=== PATIENT | female | born 1945 | race Caucasian/White ===

== ENCOUNTER → 2019-10-31 09:47 | Outpatient (BNVA) | payer MEDICARE, OTHER, SELFPAY | PROVIDERS: Family Provider Family Medicine; PCP Family Medicine; Visit Provider Nurse Practitioner | DX: F41.1 Generalized anxiety disorder (principal); F33.1 Major depressive disorder, recurrent, moderate | CPT/HCPCS: 99214 ==

== ENCOUNTER → 2019-12-26 07:30 | Outpatient (BNVA) | payer MEDICARE, OTHER, SELFPAY | PROVIDERS: Family Provider Family Medicine; PCP Family Medicine; Visit Provider Nurse Practitioner | DX: F33.1 Major depressive disorder, recurrent, moderate (principal); F41.1 Generalized anxiety disorder; F43.12 Post-traumatic stress disorder, chronic; F60.3 Borderline personality disorder | CPT/HCPCS: 99213 ==

== ENCOUNTER → 2020-02-27 07:38 | Outpatient (BNVA) | payer MEDICARE, OTHER, SELFPAY | PROVIDERS: Family Provider Family Medicine; PCP Family Medicine; Visit Provider Nurse Practitioner | DX: F33.1 Major depressive disorder, recurrent, moderate (principal); F41.1 Generalized anxiety disorder | CPT/HCPCS: 99213 ==

== ENCOUNTER 2020-03-26 15:30 | Inpatient (IN) | payer MEDICARE, OTHER, SELFPAY ==
[2020-03-26 15:32] VITALS: BMI 23.6
--- NOTE | 2020-03-26 15:41 | ECG_ITS ---
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 Measurements Intervals [place] Rate: 83 P: 49 IN: 176 QRS: 53 QRSD: 85 T: 65 QT: 376 QTc: 444 Interpretive Statements SINUS RHYTHM NONSPECIFIC T-WAVE ABNORMALITY Compared to ECG 09/08/2017 07:24:26 No significant changes Electronically Signed On 03-26-2020 16:46:28 CDT by Kenya Hernández M.D. [id number] f
--- NOTE | 2020-03-26 15:41 | XR_ITS ---
WS: [id number] Left hip, AP and frog leg, AP pelvis, 03/26/2020 Clinical Data: fall, hip pain Comparison: None. Findings: There is a comminuted fracture of the left pubic symphysis. Both hips appear to be intact. The remain akash of the pelvis is unremarkable. The SI joints and pubic symphysis show no abnormalities. XR/XR hip LT 2-3V wo/w pel* [id number] Impression: Comminuted fracture left pubic symphysis.
--- NOTE | 2020-03-26 15:42 | XR_ITS ---
WS: [id number] Portable AP supine chest, 03/26/2020 Clinical Data: fall Comparison: Portable chest, 10/29/2017. Findings: No nodules, masses or effusions are seen. The heart is normal. The pulmonary vascularity is not increased. No pneumonia or pneumothorax is seen. The aortic arch shows calcification. There are clips in the right upper quadrant from a cholecystectomy. XR/XR chest 1V portable [id number] Impression: Atherosclerosis.
[2020-03-26 15:43] VITALS: BP 152/71; PULSE 83; RESP 16; TEMP 36.6; O2SAT 91
[2020-03-26 16:15] LABS: Basophils # 0.1 10^3/uL (0.0-0.1); Basophils % 0.3 %; Eosinophils # 0.1 10^3/uL (0.0-0.8); Eosinophils % 0.4 %; Hematocrit 35.7 % (37.0-47.0); Hemoglobin 11.2 g/dL (11.5-15.3); Lymphocytes # 1.5 10^3/uL (0.8-4.8); Lymphocytes % 8.9 %; Mean Corpuscular HGB Conc 31.4 g/dL (30.0-36.0); Mean Corpuscular Hemoglobin 30.1 pg (28.0-34.0); Mean Platelet Volume 9.1 fL (7.4-10.4); Monocytes # 0.9 10^3/uL (0.2-0.9); Neutrophils # 14.44 10^3/uL (1.8-7.7); Neutrophils % 84.6 %; Nucleated Red Blood Cells % 0 %; Platelet Count 372 10^3/cmm (130-400); Red Blood Count 3.72 10^6/uL (4.1-5.3); Red Cell Distribution Width 13.3 % (12.1-15.1); White Blood Count 17.1 10^3/uL (4.0-10.0)
[2020-03-26 16:18] LABS: INR 0.92 (0.8-1.2)
[2020-03-26 16:26] LABS: Alanine Aminotransferase 137 U/L (0-33); Albumin Level 3.8 g/dL (3.5-5.2); Alkaline Phosphatase 116 IU/L (35-105); Anion Gap 11.5 (5-19); Aspartate Amino Transferase 298 U/L (0-32); Blood Urea Nitrogen 24 mg/dL (8-23); Calcium 9.1 mg/dL (8.5-10.5); Carbon Dioxide 28 mmol/L (22-29); Chloride 103 mmol/L (98-107); Globulin 3.4 g/dL (1.3-4.6); Glucose 127 mg/dL (65-115); Osmolality Calculated 284 mOsm/kg (285-295); Potassium 4.5 mmol/L (3.5-5.1); Sodium 138 mmol/L (136-145); Total Bilirubin 0.4 mg/dL (0.15-1.2); Total Protein 7.2 g/dL (6.6-8.7)
[2020-03-26 16:52] LABS: Add Urine Microscopic? YES; Bilirubin Urine Neg (NEGATIVE); Blood Urine Neg (Negative); Glucose Urine UA Norm (Normal); Ketones Urine Negative (Negative); Leukocyte Esterase Urine 1+ (Negative); Nitrate Urine Positive (Negative); Protein Urine Neg (Negative); Sulfosalicylic Acid Urine Negative (Negative); Urine Appearance Hazy (CLEAR); Urine Color Yellow (Yellow); Urobilinogen Urine Norm (Negative); pH Urine 8 (5-7)
[2020-03-26 16:54] LABS: Add Urine Culture? Yes; Amorphous Sediment Urine 3+; Bacteria Urine 2+; RBC Urine 0-4 /hpf (0-2); Squamous Epithelial Cell Urine 0-4 (0-5); WBC Urine 80-100 /hpf (0-5)
--- NOTE | 2020-03-26 17:21 | ED_ITS ---
HPI - Fall General: Chief Complaint: Fall Stated Complaint: HIP PAIN Time Seen by Provider: 03/26/20 15:41 History of Present Illness: HPI Narrative: This patient is a very nice 74-year-old female who fell today while out in her garden. She was trying to step over a fence and tripped. She fell hard onto her left side. She was unable to stand and her called the ambulance. On their arrival she did not have a significant bout of pain moving the leg but was again unable to stand and agreed to be transported. On arrival she is awake and alert. She denies any loss of consciousness or hitting her head. She denies any injury anywhere else. She is overall fairly healthy. She said she had had problems with [place] spotted fever in the past few years. She also has some chronic stomach problems which currently are being treated successfully with Pristiq. She also takes levothyroxine. complaint: fall Onset (ago): hour(s) (-09/13) Fall from: standing Fall witnessed: yes, by family Place fall occurred: home Loss of consciousness: None Prolonged down time: no Symptoms prior to fall: none Context: tripped/slipped Associated symptoms-after fall: Denies abdominal pain, chest pain, headache(s) or neck pain Review of Systems General: Reports: 10 or more systems reviewed and unremarkable except in HPI and below Const: Denies: fever(s), chills, fatigue or malaise Eyes: Denies: change in vision ENMT: Denies: odynophagia Card: Denies: chest pain or swelling of feet/ankles Resp: Denies: dyspnea, productive cough or non-productive cough GI: Denies: abdominal pain, nausea or vomiting : Denies: flank pain or difficulty voiding Musc: Denies: neck pain or back pain Skin/Breast: Denies: rash Neuro: Denies: headache(s), numbness in extremities or weakness in extremities Krzysztof/Lymph: Denies: easy bruising or easy bleeding [facility] ED PFSH: Medical History Generalized anxiety disorder Major depressive disorder, recurrent, moderate Social History Smoking and tobacco status: former smoker Quit status (tobacco): has quit using tobacco Year quit tobacco: 1984 Second hand smoke exposure: No Physical Exam Const: COMMON NORMALS: no acute distress, patient oriented x3, no limitations and alert GENERAL APPEARANCE: cooperative and comfortable HENMT: HEAD & SCALP: normal to inspection FACE & SINUS: normal facial exam Eye: GENERAL EYE: appearance normal, both eyes and all related structures Neck/C-Spine: COMMON NORMALS: supple, no meningeal signs and no JVD Chest: COMMONS NORMALS: normal inspection of the chest Resp: COMMON NORMALS: normal respiratory effort, No use of accessory muscles and clear to auscultation bilaterally AUSCULTATION: clear to auscultation bilaterally Cardio: COMMON NORMALS: no JVD, regular rate, regular rhythm and No murmurs present (Cardio) RATE: regular rate RHYTHM: regular rhythm GI: COMMON NORMALS: Normal to inspection, nondistended, normoactive bowel sounds present, Soft to palpation and non-tender INSPECTION: Yes normal to inspection AUSCULTATION: Yes normoactive bowel sounds PALPATION: Yes Soft to palpation Back/Pelvis: COMMON NORMALS: thoracic and lumbar spine normal to inspection PELVIS: Yes Other pelvic findings (Pain in the left groin and pain with range of motion of the leg. Movement causes her to have muscle spasm in the gracilis muscle area.) COCCYX: Other pelvic findings (Pain in the left groin and pain with range of motion of the leg. Movement causes her to have muscle spasm in the gracilis muscle area.) Extremity: COMMON NORMALS: normal to inspection Neuro: COMMON NORMALS: patient oriented x3, moves all extremities, no focal motor deficits and no sensory deficits noted SENSORIUM/ORIENTATION: Yes alert MENINGEAL SIGNS: Yes no meningeal signs Psych: COMMON NORMALS: mental status grossly normal, cooperative and normal affect Skin: COMMON NORMALS: no rashes or lesions noted and turgor normal GENERAL SKIN EXAM: no rashes or lesions noted and turgor normal Course ED course: X-rays show a comminuted sacral fracture. She is agreeable to staying in the hospital for some pain control and physical therapy evaluation. She also was noted to have a UTI on her urine specimen. Place a Larry and continue pain meds as needed. Consult orthopedics and admission to the hospitalist. Vital Signs: Vital signs: Vital Signs Temperature 97.8 F 03/26/20 15:43 Pulse Rate 82 03/26/20 17:30 Respiratory Rate 18 03/26/20 18:10 Blood Pressure 133/66 03/26/20 17:30 Pulse Oximetry 98 03/26/20 18:10 MDM - Fall MDM Narrative: Medical decision making narrative: Fall due to tripping over a fence. Hip fracture versus pelvic fracture. She otherwise denies complaints. Even if x-rays are negative she is unable to ambulate and will probably require admission for physical therapy to assess and treat for her ability to go home versus a [place] [facility]. She seems very motivated and may be able to do well with some pain control and teaching. Lab Data: Labs: Lab Results 03/26/20 03/26/20 03/26/20 Range/Units 15:58 15:58 15:58 WBC 17.1 H (4.0-10.0) 10^3/ uL RBC 3.72 L (4.1-5.3) 10^6/u L Hgb 11.2 L (11.5-15.3) g/dL Hct 35.7 L (37.0-47.0) % MCV 96.0 (81-99) fL MCH 30.1 (28.0-34.0) pg MCHC 31.4 (30.0-36.0) g/dL RDW 13.3 (12.1-15.1) % Plt Count 372 (130-400) 10^3/c mm MPV 9.1 (7.4-10.4) fL Neut % (Auto) 84.6 % Lymph % (Auto) 8.9 % [place] % (Auto) 5.0 % Eos % (Auto) 0.4 % Baso % (Auto) 0.3 % Neut # (Auto) 14.44 H (1.8-7.7) 10^3/u L Lymph # (Auto) 1.5 (0.8-4.8) 10^3/u L [place] # (Auto) 0.9 (0.2-0.9) 10^3/u L Eos # (Auto) 0.1 (0.0-0.8) 10^3/u L Baso # (Auto) 0.1 (0.0-0.1) 10^3/u L Nucleated RBC % (a uto) 0 % Nucleated RBCs # 0.0 /100WBC PT 12.60 (10.5-13.3) SECO NDS INR 0.92 (0.8-1.2) Sodium 138 (136-145) mmol/L Potassium 4.5 (3.5-5.1) mmol/L Chloride 103 (98-107) mmol/L Carbon Dioxide 28 (22-29) mmol/L Anion Gap 11.5 (5-19) BUN 24 H (8-23) mg/dL Creatinine 1.0 H (0.5-0.9) mg/dL Glucose 127 H (65-115) mg/dL Calculated Osmolal ity 284 L (285-295) mOsm/k g Calcium 9.1 (8.5-10.5) mg/dL Total Bilirubin 0.4 (0.15-1.2) mg/dL AST 298 H (0-32) U/L ALT 137 H (0-33) U/L Alkaline Phosphata se 116 H (35-105) IU/L Total Protein 7.2 (6.6-8.7) g/dL Albumin 3.8 (3.5-5.2) g/dL Globulin 3.4 (1.3-4.6) g/dL Urine Color (Yellow) Urine Appearance (CLEAR) Urine pH (5-7) Ur Specific Gravit y (1.005-1.030) Urine Protein (Negative) Urine Glucose (UA) (Normal) Urine Ketones (Negative) Urine Blood (Negative) Urine Nitrate (Negative) Urine Bilirubin (NEGATIVE) Prot Sulfosalicyli c Acd (Negative) Urine Urobilinogen (Negative) mg/dL Ur Leukocyte Crista ase (Negative) Urine RBC (0-2) /hpf Urine WBC (0-5) /hpf Ur Squamous Epith Cells (0-5) Amorphous Sediment Urine Bacteria (NONE) Blood Type Rho(D) Type Antibody Screen 03/26/20 03/26/20 Range/Units 15:58 16:20 WBC (4.0-10.0) 10^3/ uL RBC (4.1-5.3) 10^6/u L Hgb (11.5-15.3) g/dL Hct (37.0-47.0) % MCV (81-99) fL MCH (28.0-34.0) pg MCHC (30.0-36.0) g/dL RDW (12.1-15.1) % Plt Count (130-400) 10^3/c mm MPV (7.4-10.4) fL Neut % (Auto) % Lymph % (Auto) % [place] % (Auto) % Eos % (Auto) % Baso % (Auto) % Neut # (Auto) (1.8-7.7) 10^3/u L Lymph # (Auto) (0.8-4.8) 10^3/u L [place] # (Auto) (0.2-0.9) 10^3/u L Eos # (Auto) (0.0-0.8) 10^3/u L Baso # (Auto) (0.0-0.1) 10^3/u L Nucleated RBC % (a uto) % Nucleated RBCs # /100WBC PT (10.5-13.3) SECO NDS INR (0.8-1.2) Sodium (136-145) mmol/L Potassium (3.5-5.1) mmol/L Chloride (98-107) mmol/L Carbon Dioxide (22-29) mmol/L Anion Gap (5-19) BUN (8-23) mg/dL Creatinine (0.5-0.9) mg/dL Glucose (65-115) mg/dL Calculated Osmolal ity (285-295) mOsm/k g Calcium (8.5-10.5) mg/dL Total Bilirubin (0.15-1.2) mg/dL AST (0-32) U/L ALT (0-33) U/L Alkaline Phosphata se (35-105) IU/L Total Protein (6.6-8.7) g/dL Albumin (3.5-5.2) g/dL Globulin (1.3-4.6) g/dL Urine Color Yellow (Yellow) Urine Appearance Hazy A (CLEAR) Urine pH 8 H (5-7) Ur Specific Gravit y 1.010 (1.005-1.030) Urine Protein Neg (Negative) Urine Glucose (UA) Norm (Normal) Urine Ketones Negative (Negative) Urine Blood Neg (Negative) Urine Nitrate Positive H (Negative) Urine Bilirubin Neg (NEGATIVE) Prot Sulfosalicyli c Acd Negative (Negative) Urine Urobilinogen Norm (Negative) mg/dL Ur Leukocyte Crista ase 1+ H (Negative) Urine RBC 0-4 H (0-2) /hpf Urine WBC 80-100 H (0-5) /hpf Ur Squamous Epith Cells 0-4 H (0-5) Amorphous Sediment 3+ Urine Bacteria 2+ H (NONE) Blood Type A Positive Rho(D) Type Positive Antibody Screen Negative Discharge Plan Discharge Patient Disposition: Placed in Observation Admit Provider: Ilana Todd Clinical Impression: Acute UTI Closed pelvic fracture Qualifiers: Encounter type: initial encounter Pelvic bone location: pubis Sublocation of pubis: unspecified portion of pubis Laterality: left Qualified Code(s): S32.502A - Unspecified fracture of left pubis, initial encounter for closed fracture Condition: Stable Referrals: Joaquim Zambrano [Primary Care Provider] - Coding Level of Care Code ED Community [facility] Program Coordinator for g Fwd Exam Comprehensive
[2020-03-26 17:30] VITALS: BP 133/66; PULSE 82; RESP 18; O2SAT 93
[2020-03-26 18:10] VITALS: RESP 18; O2SAT 98
[2020-03-26] MEDS: morphine 4 mg/mL SDV 1 mL IVP (18:10)
[2020-03-26] MEDS: ondansetron 2 mg/ML SDV 2 mL 4 MG IVP (18:12)
[2020-03-26 19:40] VITALS: BP 163/64; PULSE 79; RESP 16; O2SAT 98
[2020-03-26 20:25] VITALS: BP 156/76; PULSE 77; RESP 14; TEMP 37.1; O2SAT 95
[2020-03-26] MEDS: HYDROcodone-acetaminophen 5-325 mg Tablet 1 TAB PO (21:07)
[2020-03-26] MEDS: enoxaparin 40 mg/0.4 mL Syringe SUBCUT (21:07)
[2020-03-26] MEDS: cefTRIAXone 1,000 MG in sodium chloride 0.9% (plus) 50 ML 100 MG IV (21:08)
[2020-03-26] MEDS: sodium chloride 0.9% 1,000 ML 75 ML IV (21:08)
--- NOTE | 2020-03-26 21:13 | P.HP_ITS ---
Providers/Chief Complaint Admitting Physician: Ilana Todd MD Primary Care Provider: Joaquim Zambrano Chief Complaint: HIP PAIN History of Present Illness Bailey Matta is a 74 year old female with past medical history of hypertension, hypothyroidism, depression who presented to the ER today after she tripped over her fence and developed pain in her right leg. She denies any n ausea, vomiting, headache, dizziness, palpitation, diarrhea, complains of constipation, denies flulike symptoms, exposure to COVID-19 patients, dysuria. Patient's blood work in the ER showed a white count of 17,000, hemoglobin of 11.2, left shift, INR of 0.9, sodium of 138, BUN of 24, creatinine of 1, AST of 298, ALT of 137, alkaline phosphatase of 116, urinalysis positive for nitrite 1+ leuk esterase and 80-100 WBCs. X-ray hip shows comminuted fracture left pubic symphysis. Hospitalist service was consulted for admission for pain control. Review of Systems General: Reports: 10 or more systems reviewed and unremarkable except in HPI and below Const: Denies: fever(s), chills or body aches Eyes: Denies: change in vision, blurry vision or photophobia ENMT: Reports: hoarseness; Denies: throat pain, enlarged tonsils, odynophagia or nasal congestion Card: Denies: chest pain, palpitations, irregular heart rhythm, edema, swelling of feet/ankles, lightheadedness, pre-syncope, dyspnea on exertion or orthopnea Resp: Denies: dyspnea, productive cough, non-productive cough, wheezing, strid or, pain on inspiration, change in phlegm color, hemoptysis or chest congestion GI: Denies: abdominal pain, nausea, vomiting, hematemesis, coffee ground emesis, dysphagia, heartburn, diarrhea, constipation, GI cramping, change in stool character, hematochezia or melena : Denies: flank pain, difficulty voiding, dysuria, urinary frequency, urinary urgency, urinary hesitancy or hematuria Musc: Denies: neck pain, back pain, extremity pain, joint swelling, joint warmth or deformity Neuro: Denies: headache(s), numbness in extremities, weakness in extremities, sensory changes, difficulty walking, frequent falls, dizziness, vertigo, behavioral changes, Slurred speech present or seizure-like activity Psych: Denies: anxiety, depression, suicidal ideation or homicidal ideation Endo: Denies: polyuria, polydipsia, tired all the time, cold intolerance or hot flashes Krzysztof/Lymph: Denies: easy bruising or easy bleeding Medications/Allergies Home Medications Medication Instructions Recorded Confirmed Last Taken Type levothyroxine 75 mcg capsule 75 mcg PO QDAY 10/09/19 03/26/20 03/26/20 History amlodipine 2.5 mg tablet 5 mg PO DAILY tab 10/31/19 03/26/20 03/26/20 History polyethylene glycol 3350 17 17 gm PO DAILY 10/31/19 03/26/20 03/24/20 History gram/dose oral powder desvenlafaxine succinate 100 mg 100 mg PO DAILY #30 tab 02/27/20 03/26/20 03/25/20 Rx tablet,extended release 24 hr lorazepam 0.5 mg PO BEDTIME PRN 03/26/20 03/26/20 03/25/20 History magnesium 450 mg PO DAILY 03/26/20 03/26/20 03/26/20 History Allergies Allergy/AdvReac Type Severity Reaction Status Date / Time Aminoglycosides Allergy unknown Verified 03/26/20 17:29 bacitracin Allergy unknown Verified 03/26/20 17:29 caffeine Allergy unknown Verified 03/26/20 17:29 dexamethasone Allergy unknown Verified 03/26/20 17:29 erythromycin base Allergy unknown Verified 03/26/20 17:29 hydrocortisone Allergy unknown Verified 03/26/20 17:29 mirtazapine [From Remeron] Allergy unknown Verified 03/26/20 17:29 monosodium glutamate Allergy Unknown Verified 03/26/20 17:29 neomycin Allergy unknown Verified 03/26/20 17:29 [From Maxitrol (neomycin sulf)] polymyxin B Allergy unknown Verified 03/26/20 17:29 [From Maxitrol (neomycin sulf)] adhesives Allergy unknown Uncoded 03/26/20 15:45 PFSH Acute PFSH: Medical History (Updated 03/26/20 @ 21:20 by Ilana Todd MD) CVA (cerebral vascular accident) Generalized anxiety disorder History of breast cancer HTN (hypertension) Hypothyroid Major depressive disorder, recurrent, moderate Surgical History (Updated 03/26/20 @ 21:20 by Ilana Todd MD) History of appendectomy History of cataract surgery History of section History of cholecystectomy History of hysterectomy History of mastectomy Social History Smoking and tobacco status: former smoker Quit status (tobacco): has quit using tobacco Year quit tobacco: 1984 Second hand smoke exposure: No Vitals/I&O/Wt Last Vital Signs Temp 98.7 F 03/26/20 20:25 Pulse 77 03/26/20 20:25 Resp 14 03/26/20 20:25 BP 156/76 03/26/20 20:25 Pulse Ox 95 03/26/20 20:25 Weight last 48 hrs Weight 58.513 kg Physical Exam Narrative: EXAM NARRATIVE: GEN: Awake, alert and oriented, anxious, acute distress because of pain, mildly pale CVS: S1S@ N RS: CTA B/L except crackles over RUL Abd: Soft, nt/nd , bs+ [employer] RESOURCE TEACHER: no focal neuro deficits Urinary Catheter Management^: Larry: Cath Placed During This Visit: yes Reason for Continuing Indwelling Catheter: Required Immobilization for Trauma or Surgery or Anesthesia Urinary Catheter Date of Insertion: 03/26/20 Urinary Catheter Time of Insertion: 17:52 Data : 03/26/20 15:58 03/26/20 15:58 A&P Assessment and plan (1) Closed pelvic fracture: Status: Acute Qualifiers: Encounter type: initial encounter Laterality: left Pelvic bone location: pubis Sublocation of pubis: unspecified portion of pubis Qualified Code(s): S32.502A - Unspecified fracture of left pubis, initial encounter for closed fracture (2) Acute UTI: Status: Acute (3) Transaminitis: Status: Acute (4) Hypothyroid: Status: Acute (5) HTN (hypertension): Status: Acute (6) Major depressive disorder, recurrent, moderate: Status: Acute (7) Generalized anxiety disorder: Status: Acute Additional A&P Information Closed pelvic fracture: Case discussed with Dr. Westfall. No surgical indication at present. Pain control, physical therapy evaluation and treat. Discussed with patient for potential discharge to SNF for further rehabilitation and pain control. She states she is not opposed to the idea but her is and would discuss with him before making any further decisions. UTI: No significant symptom of dysuria but patient's white count is elevated and UA is concerning. Follow urine culture, blood culture. Given ceftriaxone in the ER. We will continue for the same. De-escalate as per the culture results. Normal saline 50 cc/h. Transaminase: Continue to monitor liver function tests. No stigmata of liver failure at present. Check uppercase panel, HIV, liver ultrasound. Continue chronic medications like levothyroxine home amlodipine, Lorazepam as needed. Check lipid panel, HbA1c, iron panel, TSH. Full code. Cardiac diet Heparin for DVT prophylaxis. Attestations Medical Necessity Statement*: >2MN for hip fracture Time Spent in Patient Care: Greater than 35 minutes (>than 50% of time spent in counselling and/or direct pt care on unit) . Coding Level of Care Code Acute Radio Repairman for Kailey Lai Diagnoses Closed pelvic fracture S32.502A Encounter type: initial encounter Laterality: left Pelvic bone location: pubis Sublocation of pubis: unspecified portion of pubis Acute UTI N39.0 Transaminitis R74.0 Hypothyroid E03.9 HTN (hypertension) I10 Major depressive disorder, recurrent, moderate F33.1 Generalized anxiety disorder F41.1
[2020-03-26] MEDS: desvenlafaxine 50 mg Tablet 100 MG PO (21:53)
[2020-03-26 22:16] LABS: Estmated Average Glucose 105; Hemoglobin A1C 5.3 % (4.0-6.0)
[2020-03-26 22:39] LABS: Iron 46 ug/dL (37-145); Percent Saturation 15.5 % (20-50); Thyroid Stimulating Hormone 2.69 uIU/mL (0.27-4.20); Total Iron Binding Capacity 295 mcg/dl; Unsaturated Iron Binding 249 ug/dL (112-347)
[2020-03-27] VITALS (8 sets, daily range): BP systolic 112–146; BP diastolic 58–72; PULSE 63–80; RESP 16–20; TEMP 36.6–37; O2SAT 92–96
[2020-03-27] MEDS: LORazepam 0.5 mg Tablet PO (00:02)
[2020-03-27 05:01] LABS: Basophils % 0.5 %; Eosinophils # 0.1 10^3/uL (0.0-0.8); Eosinophils % 2.2 %; Hematocrit 35.6 % (37.0-47.0); Hemoglobin 11.1 g/dL (11.5-15.3); Lymphocytes # 1.1 10^3/uL (0.8-4.8); Lymphocytes % 18.8 %; Mean Corpuscular HGB Conc 31.2 g/dL (30.0-36.0); Mean Corpuscular Hemoglobin 30.2 pg (28.0-34.0); Mean Platelet Volume 9.2 fL (7.4-10.4); Monocytes # 0.5 10^3/uL (0.2-0.9); Monocytes % 8.3 %; Neutrophils # 4.19 10^3/uL (1.8-7.7); Neutrophils % 69.9 %; Nucleated Red Blood Cells % 0 %; Platelet Count 276 10^3/cmm (130-400); Red Blood Count 3.67 10^6/uL (4.1-5.3); Red Cell Distribution Width 13.5 % (12.1-15.1)
[2020-03-27 05:23] LABS: Chol HDL Ratio 2.35 mg/dL (0.0-4.40); Cholesterol 169 mg/dL (0-200); HDL Cholesterol 72 mg/dL (60-100); LDL Cholesterol Calculated 87 mg/dL (50-129); LDL HDL Ratio 1.21 RATIO (0.00-3.22); Triglycerides 48 mg/dL (0-150)
[2020-03-27 05:25] LABS: Albumin Level 3.3 g/dL (3.5-5.2); Alkaline Phosphatase 203 IU/L (35-105); Blood Urea Nitrogen 19 mg/dL (8-23); Calcium 8.6 mg/dL (8.5-10.5); Carbon Dioxide 26 mmol/L (22-29); Chloride 105 mmol/L (98-107); Globulin 3.4 g/dL (1.3-4.6); Glucose 86 mg/dL (65-115); Osmolality Calculated 282 mOsm/kg (285-295); Sodium 138 mmol/L (136-145); Total Bilirubin 0.5 mg/dL (0.15-1.2); Total Protein 6.7 g/dL (6.6-8.7)
[2020-03-27 05:40] LABS: Alanine Aminotransferase 1231 U/L (0-33)
[2020-03-27 05:43] LABS: Aspartate Amino Transferase 1669 U/L (0-32)
[2020-03-27] MEDS: HYDROcodone-acetaminophen 5-325 mg Tablet 1 TAB PO ×3 (05:55→16:59)
[2020-03-27] MEDS: amlodipine 5 mg Tablet PO (08:19)
[2020-03-27] MEDS: levothyroxine 50 mcg Tablet 75 MCG PO (08:19)
--- NOTE | 2020-03-27 11:29 | PC.CHAP ---
Pastoral Care Encounter/Spiritual Assessment Type of Contact [] Declined coding auditor visit [] Patient/Family/Request visit [] Outpatient visit [] Follow-up visit [] Physician referral [] Code/Alert [x] Routine visit [] Staff referral [] Actively dying [] Patient sleeping [] Family support [] [] Out of room [] Palliative care [] [] Receiving care in room [] Pre-surgical visit [] Trauma [] Long length of stay [] ICU visit [] Other: Relational/Emotional Strength [x] Patient feels connected with others/family/visitors/staff [] Distress [] Loneliness/isolation [] Abandonment Spirituality of Patient [x] Person of Marika [x] Attends Denominational of their Marika [x] Believes in Prayer [x] Reads Bible or Samaritan materials [] There are Spiritual issues to be addressed Artificial Limb Fitter Interventions [x] Prayer [x] Active listening [x] Non-anxious presence [x] Spiritual/emotional support [] Crisis/trauma care [] Spiritual counseling [] Bereavement support [] Provided bereavement packet [] Provided Bible/devotional materials [] Provided toy/stuffed animal, coloring book to patient or family member [] Provided Communion [] Anointing/Homer [] Salvation [x] Completed spiritual assessment [] Other: Impact on Illness or Injury [] Angry [] Fearful [] Anxious [] Often cries [] Exhaustion [] Unable to work [] Unable to attend voodoo [] Unable to walk/stand [] Unable to read [] Unable to drive [] Unable to eat/drink [] Unable to sleep [] Unable to be with family [] Patient intubated [x] Other: n/a Summary Time spent with patient 10 minutes
--- NOTE | 2020-03-27 14:44 | CTR_ITS ---
PROCEDURE INFORMATION: Exam: CT Left Lower Extremity Without Contrast, Hip Exam date and time: 03/27/2020 4:56 PM Age: 74 years old Clinical indication: Injury or trauma; Fall; Initial encounter; Blunt trauma; Hip; Left; Additional info: Query greater trochanteric fracture TECHNIQUE: Imaging protocol: CT of the Left lower extremity without contrast was performed. Exam focused on the hip. Radiation optimization: All CT scans at this facility use at least one of these dose optimization techniques: automated exposure control; mA and/or kV adjustment per patient size (includes targeted exams where dose is matched to clinical indication); or iterative reconstruction. COMPARISON: CR XR hip LT 2-3V wo/w pel* [id number] 03/26/2020 3:49 PM RADIATION DOSE METRICS: Total DLP (mGy-cm): 1020.72 FINDINGS: Bones/joints: There is nondisplaced vertical fracture of the left sacral wing. There is fracture in the mid left superior pubic ramus and also the attachment of the superior pubic ramus to the pubic bone and minimally displaced fracture of the left inferior pubic ramus. Left hip is intact without dislocation no fracture involving the left acetabulum, or visualized portions of the proximal left femur. Soft tissues: There is thickening of the left obturator internus muscle which could represent muscular swelling or strain. Vasculature: Atherosclerotic vascular calcifications are present in the left femoral artery. CT/CT hip LT wo con* [id number] IMPRESSION: 1. Fractures of the left superior inferior pubic rami. 2. Fracture of the left sacral wing. 3. No evidence of fracture or dislocation involving the left hip. Radiation Dose CTDIVOL = (mGy): DLP = 1020.72 (mGy-cm)
--- NOTE | 2020-03-27 14:45 | P.CONIM_ITS ---
Providers/Reason For Consult Consulting Physican/Specialty*: Dr. Trinity Westfall - Orthopedics Reason for Consult*: Left hip pain Requesting Physcian: Dr. Farmer - Emergency department Attending Physician: Ilana Todd MD Primary Care Provider: Joaquim Zambrano History of Present Illness History of Present Illness Bailey Matta is a 74 year old female who was in her usual state of health when she fell on her property. Patient notes she was walking with her over an electric fence when she tripped on the bottom wire and fell directly onto her right trochanteric area. She was carrying a basket to collect cucumbers, and just misstepped. She denies any other reason for her fall such as dizziness. Upon admission, the patient had significant left hip pain. She was diagnosed with a pubic symphysis fracture and admitted to the medical service for ongoing care. Review of Systems Const: Denies: fever(s) or chills Eyes: Denies: change in vision Card: Denies: chest pain, lightheadedness, syncope or dyspnea on exertion Resp: Denies: dyspnea or productive cough GI: Denies: abdominal pain Musc: Reports: joint pain (Left hip) Skin/Breast: Denies: erythema or changes in skin color Neuro: Denies: numbness in extremities Psych: Denies: anxiety or depression Krzysztof/Lymph: Denies: easy bruising or easy bleeding Meds/Allergies Home Medications and Allergies Home Medications Medication Instructions Recorded Confirmed Last Taken Type levothyroxine 75 mcg capsule 75 mcg PO QDAY 10/09/19 03/26/20 03/26/20 History amlodipine 2.5 mg tablet 5 mg PO DAILY tab 10/31/19 03/26/20 03/26/20 History polyethylene glycol 3350 17 17 gm PO DAILY 10/31/19 03/26/20 03/24/20 History gram/dose oral powder desvenlafaxine succinate 100 mg 100 mg PO DAILY #30 tab 02/27/20 03/26/20 03/25/20 Rx tablet,extended release 24 hr lorazepam 0.5 mg PO BEDTIME PRN 03/26/20 03/26/20 03/25/20 History magnesium 450 mg PO DAILY 03/26/20 03/26/20 03/26/20 History Allergies Allergy/AdvReac Type Severity Reaction Status Date / Time Aminoglycosides Allergy unknown Verified 03/26/20 17:29 bacitracin Allergy unknown Verified 03/26/20 17:29 caffeine Allergy unknown Verified 03/26/20 17:29 dexamethasone Allergy unknown Verified 03/26/20 17:29 erythromycin base Allergy unknown Verified 03/26/20 17:29 hydrocortisone Allergy unknown Verified 03/26/20 17:29 mirtazapine [From Remeron] Allergy unknown Verified 03/26/20 17:29 monosodium glutamate Allergy Unknown Verified 03/26/20 17:29 neomycin Allergy unknown Verified 03/26/20 17:29 [From Maxitrol (neomycin sulf)] polymyxin B Allergy unknown Verified 03/26/20 17:29 [From Maxitrol (neomycin sulf)] adhesives Allergy unknown Uncoded 03/26/20 15:45 Current Medications Current Medications Generic Name Dose Route Start Last Admin Trade Name Freq PRN Reason Stop Dose Admin Hydrocodone Bitart/Acetaminophen 1 tab 03/26/20 20:33 03/27/20 10:01 [place] 5-325 Mg PO 1 tab Q4H PRN Administration MODERATE TO SEVERE PAIN Amlodipine Besylate 5 mg 03/27/20 09:00 03/27/20 08:19 Norvasc PO 5 mg DAILY JOSIAH Administration Enoxaparin Sodium 40 mg 03/26/20 20:45 03/26/20 21:07 Lovenox SUBCUT 40 mg Q24H JOSIAH Administration Sodium Chloride 1,000 mls @ 50 mls/hr 03/26/20 20:45 03/26/20 22:07 Sodium Chloride 0.9% IV 50 mls/hr .Q20H JOSIAH Infusion Ceftriaxone Sodium 1,000 mg/ 50 mls @ 100 mls/hr 03/26/20 21:00 03/26/20 21:08 Sodium Chloride IV 100 mls/hr Q24H JOSIAH Administration Protocol Levothyroxine Sodium 75 mcg 03/27/20 09:00 03/27/20 08:19 Synthroid PO 75 mcg DAILY JOSIAH Administration Lorazepam 0.5 mg 03/26/20 20:37 03/27/20 00:02 Ativan PO 0.5 mg BEDTIME PRN Administration Anxiety PFSH Acute PFSH: Medical History (Updated 03/26/20 @ 21:20 by Ilana Todd MD) CVA (cerebral vascular accident) Generalized anxiety disorder History of breast cancer HTN (hypertension) Hypothyroid Major depressive disorder, recurrent, moderate Surgical History (Updated 03/26/20 @ 21:20 by Ilana Todd MD) History of appendectomy History of cataract surgery History of section History of cholecystectomy History of hysterectomy History of mastectomy Social History Smoking and tobacco status: former smoker Quit status (tobacco): has quit using tobacco Year quit tobacco: 1984 Second hand smoke exposure: No Vitals/I&O/Wt Last Vital Signs Temp 97.8 F 03/27/20 11:04 Pulse 73 03/27/20 11:04 Resp 16 03/27/20 11:04 BP 112/58 03/27/20 11:04 Pulse Ox 93 03/27/20 11:04 03/26/20 03/27/20 03/27/20 22:59 06:59 14:59 Intake Total 73.75 / 73.75 240 / 240 Output Total 1400 / 1400 Balance 73.75 / 73.75 -1400 / -1326.25 240 / 240 Weight last 48 hrs Weight 129 lb Physical Exam Const: COMMON NORMALS: no acute distress, average body habitus, patient oriented x3 and alert GENERAL APPEARANCE: cooperative and comfortable ORIENTATION/CONSCIOUSNESS: Yes awake HENMT: COMMON NORMALS: normocephalic and atraumatic HEAD & SCALP: normocephalic and atraumatic Eye: GENERAL EYE: appearance normal, both eyes and all related structures Chest: COMMONS NORMALS: normal inspection of the chest Resp: COMMON NORMALS: normal respiratory effort EFFORT & INSPECTION: Yes able to speak in complete sentences and Yes symmetric chest movement Extremity: GENERAL: Yes normal exam except as noted LEFT LOWER EXTREMITY: Yes hip joint (There is tenderness to palpation over the greater trochanter. There is also tenderness in the groin area.) Left hip: Yes inspection (There is minimal bruising about the hip.), Yes palpation (Laterally, there is significant discomfort as well as in the groin area.), Yes ROM (Gentle hip range of motion is minimally uncomfortable for the patient.) and Yes neurovascular exam (Intact distally.) Neuro: COMMON NORMALS: patient oriented x3 SENSORIUM/ORIENTATION: Yes alert Psych: COMMON NORMALS: mental status grossly normal APPEARANCE: Yes grossly normal ATTITUDE: Yes calm and Yes engaged ATTENTION/CONCENTRATION: Yes attention grossly intact Skin: COMMON NORMALS: no rashes or lesions noted GENERAL SKIN EXAM: no rashes or lesions noted Urinary Catheter Management^: Larry: Cath Placed During This Visit: yes Reason for Continuing Indwelling Catheter: Acute Urinary Retention or Obstruction Urinary Catheter Date of Insertion: 03/26/20 Urinary Catheter Time of Insertion: 17:52 Data Imaging^: Xray Ortho: I personally reviewed and interpreted this imaging study as follows: My impression: Upon my review of the x-rays, there is irregularity of both the inferior and superior pubic ramus. This is consistent with a comminuted fracture. Additionally, there is some irregularity about the greater trochanter, and I am concerned that the patient may have a nondisplaced greater trochanteric fracture with some comminution. I will request a CT to further evaluate this. A&P Assessment and plan (1) Closed pelvic fracture: Patient was admitted for post fracture rehabilitation and pain management secondary to a comminuted inferior and superior pubic ramus fracture. Upon my review of the x-rays, I feel that she may also have a nondisplaced greater trochanteric fracture. This would be consistent with her injury pattern as well. A CT has been ordered and is pending. With regard to the ramus fractures, the patient may be weightbearing as tolerated. Provided the trochanteric fracture if present is limited to the greater trochanter, the patient can also be weightbearing as tolerated. Status: Acute Qualifiers: Encounter type: initial encounter Laterality: left Pelvic bone location: pubis Sublocation of pubis: unspecified portion of pubis Qualified Code(s): S32.502A - Unspecified fracture of left pubis, initial encounter for closed fracture Consult Attestations Medical Necessity Statement: Per hospitalist service. 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
--- NOTE | 2020-03-27 15:12 | PM.PN ---
Subjective Subjective: Interval history: No acute overnight events. Participating with PT. Remains afebrile. White blood cell count has normalized today to 6.0, likely that the initially seen leukocytosis was a stress response to her acute fall. Output at 1.4 L. Kidney function is stable. LFTs trended up today AST 2 98-16 100, ALT 130 [id number]. T bili remains normal at 0.5, alkaline phosphatase of 203. Medications: Reviewed: Yes Vitals/I&O/Wt Last Vital Signs Temp 97.8 F 03/27/20 11:04 Pulse 73 03/27/20 11:04 Resp 16 03/27/20 11:04 BP 112/58 03/27/20 11:04 Pulse Ox 93 03/27/20 11:04 03/27/20 03/27/20 03/27/20 06:59 14:59 22:59 Intake Total 240 / 240 Output Total 1400 / 1400 Balance -1400 / -1326.25 240 / 240 Weight last 48 hrs Weight 58.513 kg Physical Exam Narrative: EXAM NARRATIVE: GEN: Awake, alert and oriented, mild distress secondary to pain CVS: S1S2 N RS: CTA B/L Abd: Soft, nt/nd , bs+ HOME CARE AIDE: no focal neuro deficits Urinary Catheter Management^: Larry: Cath Placed During This Visit: yes Reason for Continuing Indwelling Catheter: Acute Urinary Retention or Obstruction Urinary Catheter Date of Insertion: 03/26/20 Urinary Catheter Time of Insertion: 17:52 Data : 03/27/20 04:38 03/27/20 04:38 A&P Assessment and plan (1) Closed pelvic fracture: Status: Acute Qualifiers: Encounter type: initial encounter Laterality: left Pelvic bone location: pubis Sublocation of pubis: unspecified portion of pubis Qualified Code(s): S32.502A - Unspecified fracture of left pubis, initial encounter for closed fracture (2) Acute UTI: Status: Acute (3) Transaminitis: Status: Acute (4) Hypothyroid: Status: Acute (5) HTN (hypertension): Status: Acute (6) Major depressive disorder, recurrent, moderate: Status: Acute (7) Generalized anxiety disorder: Status: Acute Additional A&P Information Closed pelvic fracture, doing physical therapy. Appreciate orthopedics evaluation and recommendations. Possibility of a greater trochanteric fracture as well, CT has been ordered for further characterization. No acute surgical indication at present. Pain control, physical therapy evaluation and treat. UTI: No significant symptom of dysuria but patient's white count is elevated and UA is concerning. 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 Will treat empirically with ceftriaxone for 3-day course. Discontinue Larry once patient is comfortable. Follow urine culture Transaminitis: Per review of patient's blood pressure, she was not hypotensive for any duration of time, however possible that she may have been prior to arrival with some component of shock liver. Will obtain CT scan of the abdomen as well to evaluate for any intra-abdominal injury. Her abdominal exam currently appears to be benign at this time. Check hepatitis panel, continue IV hydration at 75 cc/h. Continue chronic medications like levothyroxine home amlodipine, Lorazepam as needed. Full code. Cardiac diet Heparin for DVT prophylaxis. Attestations Medical Necessity Statement*: fractures as above, CT evalution for hip, rising transaminitis Coding Level of Care Code Acute Hospital Medical Assistant for [facility] Diagnoses Closed pelvic fracture S32.502A Encounter type: initial encounter Laterality: left Pelvic bone location: pubis Sublocation of pubis: unspecified portion of pubis Acute UTI N39.0 Transaminitis R74.0 Hypothyroid E03.9 HTN (hypertension) I10 Major depressive disorder, recurrent, moderate F33.1 Generalized anxiety disorder F41.1
--- NOTE | 2020-03-27 15:20 | CTR_ITS ---
PROCEDURE INFORMATION: Exam: CT Abdomen And Pelvis Without Contrast Exam date and time: 03/27/2020 4:56 PM Age: 74 years old Clinical indication: Abdominal pain; Prior surgery; Additional info: Fall, rising transaminitis, evalute for ruq and injuries TECHNIQUE: Imaging protocol: Computed tomography of the abdomen and pelvis without contrast. Radiation optimization: All CT scans at this facility use at least one of these dose optimization techniques: automated exposure control; mA and/or kV adjustment per patient size (includes targeted exams where dose is matched to clinical indication); or iterative reconstruction. COMPARISON: CT abdomen pelvis w con* [id number] 02/17/2018 8:49 AM RADIATION DOSE METRICS: Total DLP (mGy-cm): 479.02 FINDINGS: Limitations: The absence of intravenous contrast lessens the sensitivity of this study for solid organ abnormalities. Lungs: There is mild dependent atelectasis at the lung bases. Mediastinal space: There is a small hiatal hernia. Liver: There is no focal abnormality within the liver. Gallbladder and bile ducts: There has been a cholecystectomy. Pancreas: The pancreas is normal. Spleen: The spleen is normal. Adrenals: Normal. No mass. Kidneys and ureters: There is a simple cyst in the left kidney not significantly changed from 02/17/2018. There is a tiny cortical calcification in the upper pole right kidney unchanged from previous. There is no evidence of renal or ureteral calcifications. There is mild nonspecific fullness of the ureters on both sides. Stomach and bowel: Unremarkable. No obstruction. No mucosal thickening. Appendix: Not identified Intraperitoneal space: Unremarkable. No free air. No significant fluid collection. Vasculature: The aorta demonstrates moderate atherosclerotic calcification. Lymph nodes: Unremarkable. No enlarged lymph nodes. Bladder: Urinary bladder is mostly drained by Larry catheter. Mild thickening of the urinary bladder wall is likely due to the small bladder volume, however one could not entirely exclude UTI, correlation with urinalysis findings is suggested. Reproductive: Unremarkable as visualized. Bones/joints: There is slight deformity of the anterior aspect of the left sacral wing consistent with nondisplaced fracture. There also fractures of the left superior and inferior pubic rami as described on the CT scan of the left hip. There is mild lumbar scoliosis concave towards the left. Chronic degenerative changes in the lower thoracic spine are stable compared with 02/17/2018. Soft tissues: There is mild asymmetric thickening of the left obturator internus muscle which could represent muscular strain or injury. CT/CT abdomen pelvis wo con [id number] IMPRESSION: 1. Pelvic fractures as described. 2. Mild thickening of the urinary bladder. 3. Mild dilatation of the ureters. Radiation Dose CTDIVOL = (mGy): DLP = 479.02 (mGy-cm)
[2020-03-27] MEDS: desvenlafaxine 50 mg Tablet 100 MG PO (16:50)
[2020-03-27] MEDS: sodium chloride 0.9% 1,000 ML 50 ML IV (16:55)
[2020-03-27] MEDS: cefTRIAXone 1,000 MG in sodium chloride 0.9% (plus) 50 ML 100 MG IV (20:09)
[2020-03-27] MEDS: enoxaparin 40 mg/0.4 mL Syringe SUBCUT (20:09)
[2020-03-28] VITALS: BP 148/74; PULSE 77; RESP 18; TEMP 36.7; O2SAT 93
[2020-03-28 04:00] VITALS: BP 166/78; PULSE 79; RESP 18; TEMP 36.6; O2SAT 93
[2020-03-28 04:07] LABS: Basophils % 0.3 %; Eosinophils # 0.4 10^3/uL (0.0-0.8); Eosinophils % 4.8 %; Hematocrit 37.5 % (37.0-47.0); Hemoglobin 11.6 g/dL (11.5-15.3); Lymphocytes # 1.4 10^3/uL (0.8-4.8); Mean Corpuscular HGB Conc 30.9 g/dL (30.0-36.0); Mean Corpuscular Hemoglobin 29.5 pg (28.0-34.0); Mean Corpuscular Volume 95.4 fL (81-99); Mean Platelet Volume 10.1 fL (7.4-10.4); Monocytes # 0.7 10^3/uL (0.2-0.9); Monocytes % 8.1 %; Neutrophils # 6.41 10^3/uL (1.8-7.7); Neutrophils % 71.4 %; Nucleated Red Blood Cells % 0 %; Platelet Count 287 10^3/cmm (130-400); Red Blood Count 3.93 10^6/uL (4.1-5.3); Red Cell Distribution Width 13.4 % (12.1-15.1)
[2020-03-28 04:34] LABS: Alanine Aminotransferase 667 U/L (0-33); Albumin Level 3.4 g/dL (3.5-5.2); Alkaline Phosphatase 220 IU/L (35-105); Anion Gap 13.9 (5-19); Aspartate Amino Transferase 373 U/L (0-32); Blood Urea Nitrogen 13 mg/dL (8-23); Calcium 8.6 mg/dL (8.5-10.5); Carbon Dioxide 25 mmol/L (22-29); Chloride 101 mmol/L (98-107); Globulin 3.9 g/dL (1.3-4.6); Glucose 106 mg/dL (65-115); Osmolality Calculated 279 mOsm/kg (285-295); Potassium 3.9 mmol/L (3.5-5.1); Sodium 136 mmol/L (136-145); Total Bilirubin 0.3 mg/dL (0.15-1.2); Total Protein 7.3 g/dL (6.6-8.7)
[2020-03-28 04:38] LABS: Creatine Phosphokinase 75 U/L (26-192); Thyroid Stimulating Hormone 1.42 uIU/mL (0.27-4.20)
[2020-03-28 05:44] LABS: Hepatitis A Antibody IgM Non-Reactive (Nonreactive); Hepatitis B Core AB, Total Non-Reactive (Nonreactive); Hepatitis B Surface AB 12.3 (0-8.5); Hepatitis B Surface Antigen Non-Reactive (Nonreactive); Hepatitis C Virus Antibody Non-Reactive (Nonreactive)
[2020-03-28 08:00] VITALS: BP 161/68; PULSE 68; RESP 16; TEMP 35.5; O2SAT 94
[2020-03-28 08:55] LABS: Glucose Point of Care 141 mg/dL (70-110)
[2020-03-28] MEDS: amlodipine 5 mg Tablet PO (09:32)
[2020-03-28] MEDS: levothyroxine 50 mcg Tablet 75 MCG PO (09:32)
[2020-03-28] MEDS: sodium chloride 0.9% 1,000 ML 50 ML IV (10:19)
[2020-03-28] MEDS: polyethylene glycol 3350 Pkt 17 gm PO (10:58)
[2020-03-28 12:00] VITALS: BP 163/65; PULSE 66; RESP 17; TEMP 36; O2SAT 95
[2020-03-28] MEDS: desvenlafaxine 50 mg Tablet 100 MG PO (13:33)
[2020-03-28 15:58] VITALS: BP 154/70; PULSE 58; RESP 18; TEMP 37; O2SAT 94
--- NOTE | 2020-03-28 16:35 | P.PN_ITS ---
Subjective Subjective: Interval history: No acute overnight events. Continues to feel well. Reports some dyspepsia for which Tums has been started. 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: no focal neuro deficits Urinary Catheter Management^: Larry: Cath Placed During This Visit: yes, but has since been removed by the nurse Reason for Continuing Indwelling Catheter: Decision to DC Catheter Urinary Catheter Date of Insertion: 03/26/20 Urinary Catheter Time of Insertion: 17:52 Date Urinary Catheter Removed: 03/28/20 Time Urinary Catheter Discontinued: 13:27 Data : 03/28/20 03:00 03/28/20 03:00 Micro: Microbiology 03/26/20 16:20 Urine Culture - Preliminary Urine,Clean Catch Gram Negative Rods A&P Assessment and plan (1) Closed pelvic fracture: Status: Acute Qualifiers: Encounter type: initial encounter Laterality: left Pelvic bone location: pubis Sublocation of pubis: unspecified portion of pubis Qualified Code(s): S32.502A - Unspecified fracture of left pubis, initial encounter for closed fracture (2) Acute UTI: Status: Acute (3) Transaminitis: Status: Acute (4) Hypothyroid: Status: Acute (5) HTN (hypertension): Status: Acute (6) Major depressive disorder, recurrent, moderate: Status: Acute (7) Generalized anxiety disorder: Status: Acute Additional A&P Information Closed pelvic fracture, doing physical therapy and OT Appreciate orthopedics evaluation and recommendations. No acute surgical indication at present. Pain control, physical therapy evaluation and treat. UTI: No significant symptom of dysuria but patient's white count is elevated and UA is concerning. She also reports a past history of urinary incontinence and a hypoactive bladder. 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 Will treat empirically with ceftriaxone for 3-day course, last dose today. Discontinue Larry today in anticipation of discharge in the next 24 hours. Urine culture with gram-negative rods waiting to be identified. Transaminitis: Per review of patient's blood pressure, she was not hypotensive for any duration of time, however possible that she may have been prior to arrival with some component of shock liver. CT of the abdomen pelvis obtained yesterday shows mild thickening of the urinary bladder and mild dilatation of the ureters, this is nonspecific. There is no focal abnormality within the liver. The gallbladder and bile ducts are within normal range. There has been a cholecystectomy. There is no evidence of any intra-abdominal injuries. Enzymes are trending down today reassuringly. Hepatitis panel is negative for acute hepatitis A or hep B infections. Hep C screen is negative. Continue chronic medications like levothyroxine home amlodipine, Lorazepam as needed. Full code. Cardiac diet Heparin for DVT prophylaxis. Attestations Medical Necessity Statement*: Doing well with PT OT currently, plan for discharge to SNF in the upcoming 24 hours. 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
--- NOTE | 2020-03-28 16:35 | P.PN_ITS ---
Subjective Subjective: Interval history: Patient is seen. She has gotten up with physical therapy with minimal discomfort. She is in her bed at the time of my evaluation. She is looking forward to discharge hopefully tomorrow. Medications: Reviewed: Yes Vitals/I&O/Wt Last Vital Signs Temp 89.6 F L 03/28/20 15:58 Pulse 58 L 03/28/20 15:58 Resp 18 03/28/20 15:58 BP 154/70 03/28/20 15:58 Pulse Ox 94 03/28/20 15:58 03/28/20 03/28/20 03/28/20 06:59 14:59 22:59 Intake Total 490 / 2306.25 1210 / 1210 Output Total 2050 / 3700 1000 / 1000 Balance -1560 / -1393.75 210 / 210 Physical Exam Const: COMMON NORMALS: no acute distress, average body habitus, patient oriented x3 and alert GENERAL APPEARANCE: cooperative and comfortable ORIENTATION/CONSCIOUSNESS: Yes awake HENMT: COMMON NORMALS: normocephalic and atraumatic HEAD & SCALP: normocephalic and atraumatic Eye: GENERAL EYE: appearance normal, both eyes and all related structures Chest: COMMONS NORMALS: normal inspection of the chest Resp: COMMON NORMALS: normal respiratory effort EFFORT & INSPECTION: Yes able to speak in complete sentences and Yes symmetric chest movement Extremity: GENERAL: Yes normal exam except as noted RIGHT LOWER EXTREMITY: Yes hip joint (There is minimal discomfort today with range of motion of this hip. There is some discomfort in the area of the pubic symphysis and also po steriorly.) Right hip: Yes neurovascular exam (Intact distal to the fracture. There is no evidence of DVT.) Neuro: COMMON NORMALS: patient oriented x3 SENSORIUM/ORIENTATION: Yes alert Psych: COMMON NORMALS: mental status grossly normal APPEARANCE: Yes grossly normal ATTITUDE: Yes calm and Yes engaged ATTENTION/CONCENTRATION: Yes attention grossly intact Skin: COMMON NORMALS: no rashes or lesions noted GENERAL SKIN EXAM: no rashes or lesions noted Urinary Catheter Management^: Larry: Cath Placed During This Visit: yes, but has since been removed by the nurse Reason for Continuing Indwelling Catheter: Decision to DC Catheter Urinary Catheter Date of Insertion: 03/26/20 Urinary Catheter Time of Insertion: 17:52 Date Urinary Catheter Removed: 03/28/20 Time Urinary Catheter Discontinued: 13:27 Data : 03/28/20 03:00 03/28/20 03:00 Micro: Microbiology 03/26/20 16:20 Urine Culture - Preliminary Urine,Clean Catch Gram Negative Rods Other CT: I personally reviewed and interpreted this imaging study as follows: My impression: I ordered a CT scan to rule out any extension of fracture the intertrochanteric area or involving the greater trochanter. CT does demonstrate the previously known left superior and inferior pubic rami fractures, but there is also fracture of the left sacral ala wing which is nondisplaced. Specifically, the left hip is intact without dislocation or fracture involving either the femur or acetabulum. A&P Assessment and plan (1) Closed pelvic fracture: Patient was admitted for post fracture rehabilitation and pain management secondary to comminuted inferior and superior pubic ramus fractures. CT of the patient's pelvis was ordered and reviewed. The irregularity of the greater trochanter did not appear to be an acute fracture. There was however a nondispl aced sacral ala wing fracture as well as the previously noted inferior and superior pubic ramus fractures. With regard to these fractures, the patient may be weightbearing as tolerated. Physical therapy has been ordered for the patient weightbearing as tolerated. She may follow-up with me on an as-needed basis. Status: Acute Qualifiers: Encounter type: initial encounter Laterality: left Pelvic bone location: pubis Sublocation of pubis: unspecified portion of pubis Qualified Code(s): S32.502A - Unspecified fracture of left pubis, initial encounter for closed fracture Attestations Medical Necessity Statement*: Per hospitalist service. 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
[2020-03-28 20:00] VITALS: BP 168/73; PULSE 73; RESP 20; TEMP 36.7; O2SAT 96
[2020-03-28] MEDS: enoxaparin 40 mg/0.4 mL Syringe SUBCUT (20:33)
[2020-03-28] MEDS: cefTRIAXone 1,000 MG in sodium chloride 0.9% (plus) 50 ML 100 MG IV (20:34)
[2020-03-28] MEDS: LORazepam 0.5 mg Tablet PO ×2 (20:40)
[2020-03-28] MEDS: HYDROcodone-acetaminophen 5-325 mg Tablet 1 TAB PO (23:44)
[2020-03-29] VITALS: BP 150/74; PULSE 71; RESP 18; TEMP 36.6; O2SAT 95
[2020-03-29 01:50] VITALS: PULSE 69; O2SAT 94
[2020-03-29] MEDS: sodium chloride 0.9% 1,000 ML 50 ML IV (02:58)
[2020-03-29 04:00] VITALS: BP 150/77; PULSE 67; RESP 18; TEMP 36.6; O2SAT 94
[2020-03-29 06:15] LABS: Basophils % 0.5 %; Eosinophils # 0.2 10^3/uL (0.0-0.8); Eosinophils % 1.9 %; Hematocrit 35.7 % (37.0-47.0); Hemoglobin 11.2 g/dL (11.5-15.3); Lymphocytes # 1.6 10^3/uL (0.8-4.8); Mean Corpuscular HGB Conc 31.4 g/dL (30.0-36.0); Mean Corpuscular Hemoglobin 29.6 pg (28.0-34.0); Mean Corpuscular Volume 94.4 fL (81-99); Mean Platelet Volume 10.1 fL (7.4-10.4); Monocytes # 0.8 10^3/uL (0.2-0.9); Monocytes % 10.3 %; Neutrophils # 5.33 10^3/uL (1.8-7.7); Nucleated Red Blood Cells % 0 %; Platelet Count 283 10^3/cmm (130-400); Red Blood Count 3.78 10^6/uL (4.1-5.3); Red Cell Distribution Width 13.3 % (12.1-15.1)
[2020-03-29 06:49] LABS: Alanine Aminotransferase 370 U/L (0-33); Albumin Level 3.2 g/dL (3.5-5.2); Alkaline Phosphatase 198 IU/L (35-105); Anion Gap 12.9 (5-19); Aspartate Amino Transferase 96 U/L (0-32); Blood Urea Nitrogen 10 mg/dL (8-23); Calcium 8.5 mg/dL (8.5-10.5); Carbon Dioxide 26 mmol/L (22-29); Chloride 104 mmol/L (98-107); Globulin 3.8 g/dL (1.3-4.6); Glucose 92 mg/dL (65-115); Osmolality Calculated 284 mOsm/kg (285-295); Potassium 3.9 mmol/L (3.5-5.1); Sodium 139 mmol/L (136-145); Total Bilirubin 0.3 mg/dL (0.15-1.2)
[2020-03-29 07:17] VITALS: BP 148/72; PULSE 74; RESP 18; TEMP 36.8; O2SAT 95
[2020-03-29] MEDS: levothyroxine 50 mcg Tablet 75 MCG PO (08:23)
[2020-03-29] MEDS: amlodipine 5 mg Tablet PO (08:23)
[2020-03-29] MEDS: polyethylene glycol 3350 Pkt 17 gm PO (08:23)
--- NOTE | 2020-03-29 10:12 | PM.DCS ---
Discharge Providers Date of Admission: 03/26/20 17:08 Date of Discharge: March 29, 2020 Attending Provider at Admission: Ilana Todd MD Attending Provider at Discharge: Ilana Todd MD Primary Care Provider: Joaquim Zambrano Diagnoses at Discharge Discharge Diagnosis (1) Closed pelvic fracture: Status: Acute Qualifiers: Encounter type: initial encounter Laterality: left Pelvic bone location: pubis Sublocation of pubis: unspecified portion of pubis Qualified Code(s): S32.502A - Unspecified fracture of left pubis, initial encounter for closed fracture Reason for Visit Reason for Visit: HIP PAIN Hospital Course Discharge Summary: Bailey Matta is a 74 year old female with past medical history of hypertension, hypothyroidism, depression who presented to the ER after she tripped over her fence and developed pain in her right leg. She denied any nausea, vomiting, headache, dizziness, palpitation, diarrhea, complains of constipation, denies flulike symptoms, exposure to COVID-19 patients, dysuria. Patient's blood work in the ER showed a white count of 17,000, hemoglobin of 11.2, left shift, INR of 0.9, sodium of 138, BUN of 24, creatinine of 1, AST of 298, ALT of 137, alkaline phosphatase of 116, urinalysis positive for nitrite 1+ leuk esterase and 80-100 WBCs. X-ray hip shows comminuted fracture left pubic symphysis. She was seen by the orthopedic service and also been noted to have fracture of the left sacral ala line which is nondisplaced. The left hip was intact without any dislocation or fracture involving either the femur or the acetabulum. It was recommended that she continue fracture rehabilitation and pain management. She has been ordered after consultation with Ortho and physical therapy to be weightbearing as tolerated. For her UTI she received 3 days of empiric ceftriaxone. White count has normalized completely. She has no current or symptoms of dysuria. Urine culture is showing gram-negative rods, pending speciation this may be followed upon discharge at the shelter. Hospital course was also notable for transaminitis, with peak AST ALT levels at 1612 100 respectively, at the time of discharge these have trended down to 96 and 370. Alkaline phosphatase remains chronically elevated at around 200. T bili was never an issue. CT of the abdomen did not show any intra-abdominal injuries or any acute liver issues. Acute hepatitis serology was negative. Recommend rechecking LFT midweek next week. No clear etiology is certain for the acute transaminitis, certainly possible that patient was hypotensive prior to being brought to the ER as a result of which she could have had a transient liver injury which resolved with hydration. Physical Exam Narrative: EXAM NARRATIVE: GEN: Awake, alert and oriented, no acute distress CVS: S1S2 N RS: CTA B/L Abd: Soft, nt/nd , bs+ [employer]: no focal neuro deficits Urinary Catheter Management^: Larry: Cath Placed During This Visit: yes, but has since been removed by the nurse Reason for Continuing Indwelling Catheter: Decision to DC Catheter Urinary Catheter Date of Insertion: 03/26/20 Urinary Catheter Time of Insertion: 17:52 Date Urinary Catheter Removed: 03/28/20 Time Urinary Catheter Discontinued: 13:27 Discharge Data Data Completed and Pending: Completed Studies During Hospitalization Category Date Time Status CT abdomen pelvis wo con [id number] Rout ine Cat Scan 03/27/20 15:[address] hip LT wo con* [id number] Routine Cat Scan 03/27/20 14:44 Completed XR chest 1V carlos ble [id number] Stat Exams 03/26/20 15:42 Completed XR hip LT 2-3V wo /w pel* [id number] Stat Exams 03/26/20 15:41 Completed Pending at discharge Category Date Time Status Urine Culture Sta t Lab 03/26/20 16:20 Results Labs from last 24 hours 03/29/20 03/29/20 05:08 05:08 WBC 8.0 RBC 3.78 L Hgb 11.2 L Hct 35.7 L MCV 94.4 MCH 29.6 MCHC 31.4 RDW 13.3 Plt Count 283 MPV 10.1 Neut % (Auto) 67.0 Lymph % (Auto) 20.0 Hand % (Auto) 10.3 Eos % (Auto) 1.9 Baso % (Auto) 0.5 Neut # (Auto) 5.33 Lymph # (Auto) 1.6 Hand # (Auto) 0.8 Eos # (Auto) 0.2 Baso # (Auto) 0.0 Nucleated RBC % (a uto) 0 Nucleated RBCs # 0.0 Sodium 139 Potassium 3.9 Chloride 104 Carbon Dioxide 26 Anion Gap 12.9 BUN 10 Creatinine 0.6 Glucose 92 Calculated Osmolal ity 284 L Calcium 8.5 Total Bilirubin 0.3 AST 96 H ALT 370 H Alkaline Phosphata se 198 H Total Protein 7.0 Albumin 3.2 L Globulin 3.8 Vitals: Last Vital Signs Temp 98.2 F 03/29/20 07:17 Pulse 74 03/29/20 07:17 Resp 18 03/29/20 07:17 BP 148/72 03/29/20 07:17 Pulse Ox 95 03/29/20 07:17 Discharge Plan Discharge Condition: Stable Prescriptions: New hydrocodone-acetaminophen 5-325 mg Tablet 1 tab PO Q8H PRN (Reason: Moderate To Severe Pain) 7 Days Qty: 21 RF: 0 polyethylene glycol 3350 [Miralax] 17 gram Powder In Packet 17 g PO BID PRN (Reason: constipation) 30 Days Qty: 60 RF: 0 Continued levothyroxine 75 mcg capsule 75 mcg PO QDAY RF: 0 amlodipine 2.5 mg tablet 5 mg PO DAILY RF: 0 polyethylene glycol 3350 [Miralax] 17 gram/dose powder 17 gm PO DAILY RF: 0 desvenlafaxine succinate [Pristiq] 100 mg tablet extended release 24 hr 100 mg PO DAILY Qty: 30 RF: 2 lorazepam 0.5 mg tablet 0.5 mg PO BEDTIME PRN (Reason: Anxiety) RF: 0 magnesium 200 mg Tablet 450 mg PO DAILY RF: 0 Discharge Orders: Discharge Order (Routine); Ordered 03/29/20 Ordered By: Ilana Todd Other Ambulatory Orders: Liver Panel (Routine) Timeframe: 20200402 Location: Determined by Patient Ordered By: Ilana Todd Referrals: Joaquim Zambrano [Primary Care Provider] - Discharge Diet: Usual diet Discharge Activity: As per PT/OT instructions Activity Restrictions/Additional Instructions: weight bearing as tolerated Discharge Attestations Time Spent in Discharge Care*: greater than 30 min Quality Metrics Clinical Quality Measures During this hospital stay, did patient experience: None Coding Level of Care Code Acute Tape Coater for [facility] Fwd Diagnoses Closed pelvic fracture S32.502A Encounter type: initial encounter Laterality: left Pelvic bone location: pubis Sublocation of pubis: unspecified portion of pubis
[2020-03-29 12:00] VITALS: BP 163/73; PULSE 80; RESP 18; TEMP 36.3; O2SAT 98
--- NOTE | 2020-03-29 12:28 | PC.SOCIAL ---
IMM* Patient received a copy, original initialled in the chart.
--- NOTE | 2020-03-29 12:46 | PC.NURSE ---
Report called to [facility] at [place], [place].
[2020-03-29] MEDS: desvenlafaxine 50 mg Tablet 100 MG PO (13:35)
[2020-03-29 14:22] VITALS: BP 163/73; PULSE 80; RESP 18; TEMP 36.3; O2SAT 98
--- NOTE | 2020-03-29 14:36 | PM.PN ---
Subjective Subjective: Interval history: Patient is seen. She has gotten up with physical therapy with minimal discomfort. She is in her bed at the time of my evaluation. She is ready for discharge today is in agreement with the plan. Medications: Reviewed: Yes Vitals/I&O/Wt Last Vital Signs Temp 97.4 F L 03/29/20 14:22 Pulse 80 03/29/20 14:22 Resp 18 03/29/20 14:22 BP 163/73 03/29/20 14:22 Pulse Ox 98 03/29/20 14:22 03/28/20 03/29/20 03/29/20 22:59 06:59 14:59 Intake Total 220 / 1430 1482.5 / 2912.5 240 / 240 Output Total 1000 / 2000 1300 / 3300 Balance -780 / -570 182.5 / -387.5 240 / 240 Physical Exam Const: COMMON NORMALS: no acute distress, average body habitus, patient oriented x3 and alert GENERAL APPEARANCE: cooperative and comfortable ORIENTATION/CONSCIOUSNESS: Yes awake HENMT: COMMON NORMALS: normocephalic and atraumatic HEAD & SCALP: normocephalic and atraumatic Eye: GENERAL EYE: appearance normal, both eyes and all related structures Chest: COMMONS NORMALS: normal inspection of the chest Resp: COMMON NORMALS: normal respiratory effort EFFORT & INSPECTION: Yes able to speak in complete sentences and Yes symmetric chest movement Extremity: NARRATIVE EXTREMITY EXAM: The patient has left inferior and superior pubic ramus fractures as well as a nondisplaced sacral fracture. She is working with therapy and doing well. She remains neurologically intact. GENERAL: Yes normal exam except as noted Neuro: COMMON NORMALS: patient oriented x3 SENSORIUM/ORIENTATION: Yes alert Psych: COMMON NORMALS: mental status grossly normal APPEARANCE: Yes grossly normal ATTITUDE: Yes calm and Yes engaged ATTENTION/CONCENTRATION: Yes attention grossly intact Skin: COMMON NORMALS: no rashes or lesions noted GENERAL SKIN EXAM: no rashes or lesions noted Urinary Catheter Management^: Larry: Cath Placed During This Visit: yes, but has since been removed by the nurse Reason for Continuing Indwelling Catheter: Decision to DC Catheter Urinary Catheter Date of Insertion: 03/26/20 Urinary Catheter Time of Insertion: 17:52 Date Urinary Catheter Removed: 03/28/20 Time Urinary Catheter Discontinued: 13:27 Data : 03/29/20 05:08 03/29/20 05:08 Micro: Microbiology 03/26/20 16:20 Urine Culture - Preliminary Urine,Clean Catch Providencia rettgeri A&P Assessment and plan (1) Closed pelvic fracture: Patient was admitted for post fracture rehabilitation and pain management secondary to comminuted inferior and superior pubic ramus fractures. CT of the patient's pelvis was ordered and reviewed. Also visualized was a nondisplaced sacral ala wing fracture as well as the previously noted inferior and superior pubic ramus fractures. With regard to these fractures, the patient may be weightbearing as tolerated. Physical therapy has been ordered for the patient weightbearing as tolerated. She may follow-up with me on an as-needed basis. Status: Acute Qualifiers: Encounter type: initial encounter Laterality: left Pelvic bone location: pubis Sublocation of pubis: unspecified portion of pubis Qualified Code(s): S32.502A - Unspecified fracture of left pubis, initial encounter for closed fracture (2) Sacral fracture, closed: Status: Acute Attestations Medical Necessity Statement*: Patient is ready for discharge to home. Coding Level of Care Code Acute Director Of [facility] for [facility] Fwd Diagnoses Closed pelvic fracture S32.502A Encounter type: initial encounter Laterality: left Pelvic bone location: pubis Sublocation of pubis: unspecified portion of pubis Sacral fracture, closed S32.10XA
== END 2020-03-29 14:10 | disposition skilled nursing facility (03) | DRG 536 ==
LOC: ER 17:08 → MEDSURG 18:52
PROVIDERS: Admitting Provider Student in an Organized Health Care Education/Training Program; Emergency Provider Emergency Medicine; PCP Family Medicine; Visit Provider Student in an Organized Health Care Education/Training Program
DX: S32.502A Unspecified fracture of left pubis, initial encounter for closed fracture (principal); N39.0 Urinary tract infection, site not specified; F33.1 Major depressive disorder, recurrent, moderate; W18.09XA Striking against other object with subsequent fall, initial encounter; Y92.79 Other farm location as the place of occurrence of the external cause; I10 Essential (primary) hypertension; E03.9 Hypothyroidism, unspecified; Z86.73 Personal history of transient ischemic attack (TIA), and cerebral infarction without residual deficits; Z85.3 Personal history of malignant neoplasm of breast; Z87.891 Personal history of nicotine dependence; F41.1 Generalized anxiety disorder
CPT/HCPCS: 12345; 36415; 36416; 51702; 71045; 73502; 73700; 74176; 80053; 80061; 81001; 81003; 82550; 82962; 83036; 83540; 83550; 84443; 85025; 85610; 86705; 86706; 86709; 86803; 86850; 86900; 87077; 87086; 87186; 87340; 93005; 96372; 96375; 97110; 97116; 97162; 97166; 97530; 97535; 99283; J0696; J1650; J2270; J2405; J7030

== ENCOUNTER → 2020-05-26 08:04 | Outpatient (BNVA) | payer MEDICARE, OTHER, SELFPAY | PROVIDERS: PCP Family Medicine; Visit Provider Nurse Practitioner | DX: F33.1 Major depressive disorder, recurrent, moderate (principal); F41.1 Generalized anxiety disorder | CPT/HCPCS: 99213 ==

== ENCOUNTER → 2020-09-01 07:24 | Outpatient (BNVA) | payer MEDICARE, OTHER, SELFPAY | PROVIDERS: PCP Family Medicine; Visit Provider Nurse Practitioner | DX: F41.1 Generalized anxiety disorder (principal); F33.1 Major depressive disorder, recurrent, moderate | CPT/HCPCS: 99213 ==

== ENCOUNTER → 2020-11-18 07:27 | Outpatient (BNVA) | payer MEDICARE, OTHER, SELFPAY | PROVIDERS: PCP Family Medicine; Visit Provider Nurse Practitioner | DX: F33.1 Major depressive disorder, recurrent, moderate (principal); F41.1 Generalized anxiety disorder | CPT/HCPCS: 99214 ==

== ENCOUNTER 2020-12-24 10:40 | Outpatient (CLI) | payer MEDICARE, OTHER, SELFPAY ==
--- NOTE | 2020-12-24 10:54 | FL_ITS ---
WS: [id number] Modified barium swallow, 12/24/2020 Clinical Data: Other dysphagia Comparison: None. Fluoroscopy time: 2.6 minutes. Findings: The patient did demonstrate premature spilling on all phases. There was no residue, penetration or as piration. Multiple swallows cleared the barium bolus. The patient did swallow a barium tablet and it propelled normally into the stomach.. FL/FL barium swallow modifd [id number] Impression: Premature spillage but there was no pharyngeal residue, aspiration or penetrati on.
== END 2020-12-24 10:41 | disposition home or self-care (01) ==
LOC: RAD 10:47
PROVIDERS: PCP Family Medicine; Visit Provider Nurse Practitioner Family
DX: R13.10 Dysphagia, unspecified (principal)
CPT/HCPCS: 74230; 92611

== ENCOUNTER → 2021-02-11 07:39 | Outpatient (BNVA) | payer MEDICARE, OTHER, SELFPAY | PROVIDERS: PCP Family Medicine; Visit Provider Nurse Practitioner | DX: F33.1 Major depressive disorder, recurrent, moderate (principal); F41.1 Generalized anxiety disorder | CPT/HCPCS: 99214 ==

== ENCOUNTER → 2021-05-12 07:11 | Outpatient (BNVA) | payer MEDICARE, OTHER, SELFPAY | PROVIDERS: PCP Family Medicine; Visit Provider Nurse Practitioner | DX: F33.1 Major depressive disorder, recurrent, moderate (principal); F41.1 Generalized anxiety disorder | CPT/HCPCS: 99214 ==

== ENCOUNTER → 2021-08-26 07:21 | Outpatient (BNVA) | payer MEDICARE, OTHER, SELFPAY | PROVIDERS: PCP Family Medicine; Visit Provider Nurse Practitioner | DX: F33.1 Major depressive disorder, recurrent, moderate (principal); F41.1 Generalized anxiety disorder | CPT/HCPCS: 99214 ==

== ENCOUNTER → 2021-11-25 07:26 | Outpatient (BNVA) | payer MEDICARE, OTHER, SELFPAY | PROVIDERS: PCP Family Medicine; Visit Provider Nurse Practitioner | DX: F33.1 Major depressive disorder, recurrent, moderate (principal); F41.1 Generalized anxiety disorder | CPT/HCPCS: 99214 ==

== ENCOUNTER → 2022-01-12 09:30 | Outpatient (BNVA) | payer MEDICARE, OTHER, SELFPAY | PROVIDERS: PCP Nurse Practitioner Family; Visit Provider Nurse Practitioner Family | DX: I10 Essential (primary) hypertension (principal); R53.83 Other fatigue; E53.8 Deficiency of other specified B group vitamins; R23.8 Other skin changes; J06.9 Acute upper respiratory infection, unspecified | CPT/HCPCS: 80053; 82607; 84443; 85025 ==

== ENCOUNTER → 2022-01-19 10:39 | Outpatient (BNVA) | payer MEDICARE, OTHER, SELFPAY | PROVIDERS: PCP Nurse Practitioner Family; Visit Provider Nurse Practitioner Family | DX: R35.0 Frequency of micturition (principal); R31.9 Hematuria, unspecified; J20.8 Acute bronchitis due to other specified organisms; B96.89 Other specified bacterial agents as the cause of diseases classified elsewhere; N39.0 Urinary tract infection, site not specified | CPT/HCPCS: 81000; 87086 ==

== ENCOUNTER → 2022-02-17 10:41 | Outpatient (BNVA) | payer MEDICARE, OTHER, SELFPAY | PROVIDERS: PCP Nurse Practitioner Family; Visit Provider Nurse Practitioner | DX: F33.1 Major depressive disorder, recurrent, moderate (principal); F41.1 Generalized anxiety disorder | CPT/HCPCS: 99214 ==

== ENCOUNTER → 2022-08-18 10:01 | Outpatient (BNVA) | payer MEDICARE, OTHER, SELFPAY | PROVIDERS: PCP Nurse Practitioner Family; Visit Provider Podiatrist Foot & Ankle Surgery | DX: M77.42 Metatarsalgia, left foot (principal); M24.572 Contracture, left ankle; L90.9 Atrophic disorder of skin, unspecified | CPT/HCPCS: 73630; 99204 ==

== ENCOUNTER → 2022-09-17 09:40 | Outpatient (BNVA) | payer MEDICARE, OTHER, SELFPAY | PROVIDERS: PCP Nurse Practitioner Family; Visit Provider Podiatrist Foot & Ankle Surgery | DX: M77.42 Metatarsalgia, left foot (principal); M24.572 Contracture, left ankle; L90.9 Atrophic disorder of skin, unspecified | CPT/HCPCS: 99213 ==

== ENCOUNTER → 2023-02-21 15:40 | Outpatient (BNVA) | payer MEDICARE, OTHER, SELFPAY | PROVIDERS: PCP Nurse Practitioner Family; Visit Provider Nurse Practitioner Family | DX: N39.0 Urinary tract infection, site not specified (principal); L25.9 Unspecified contact dermatitis, unspecified cause | CPT/HCPCS: 87077; 87086; 87184 ==

== ENCOUNTER → 2023-03-03 09:23 | Outpatient (BNVA) | payer MEDICARE, OTHER, SELFPAY | PROVIDERS: PCP Nurse Practitioner Family; Visit Provider Nurse Practitioner Family | DX: R35.0 Frequency of micturition (principal) | CPT/HCPCS: 87077; 87086; 87184 ==